=== PATIENT | female | born 1980 | race Caucasian/White ===

== ENCOUNTER 2023-06-13 21:43 | Emergency (ER) | payer MEDICAID, OTHER ==
[~2023-06-13] VITALS: Ht 160 cm; Wt 103.9 kg
[2023-06-13 21:50] VITALS: TEMP 98.5
[2023-06-14 00:08] VITALS: BP 125/86; PULSE 95; RESP 18
[2023-06-14] MEDS ORDERED: IBUP-1492 PO (00:11)
== END 2023-06-14 00:18 | disposition home or self-care (01) ==
LOC: EMS 21:44
DX: S63.501A Unspecified sprain of right wrist, initial encounter (principal); F17.210 Nicotine dependence, cigarettes, uncomplicated; X58.XXXA Exposure to other specified factors, initial encounter; Y93.89 Activity, other specified; Y92.89 Other specified places as the place of occurrence of the external cause; Y99.8 Other external cause status
CPT/HCPCS: 99283